=== PATIENT | female | born 1950 | race Caucasian/White ===

== ENCOUNTER 2017-05-05 16:59 | Inpatient (IN) | payer MEDICARE ==
[2017-05-05 18:13] LABS: BASOPHILS 0.2 % (0-2); EOSINOPHILS 0 % (0-7); HEMATOCRIT 38.4 % (36.0-48.0); HEMOGLOBIN 12.9 g/dL (12-16); IMMATURE GRANULOCYTES 0.2 % (0-5); LYMPHOCYTES 42.4 % (15-50); MCH 31.5 pg (26.0-34.0); MCHC 33.6 g/dL (31.0-37.0); MCV 93.9 fL (80.0-100.0); MEAN PLATELET VOLUME 10.4 fL (7.4-10.4); MONOCYTES 8.1 % (2-11); NEUTROPHILS 49.1 % (40-80); PLATELET COUNT 202 10x3/uL (130-400); RBC 4.09 10x6/uL (4.00-5.40); RDW 14.9 % (11.5-14.5); WBC 6.5 10x3/uL (4.8-10.8)
[2017-05-05 18:18] LABS: APPEARANCE CLEAR (CLEAR); COLOR STRAW (YELLOW); GLUCOSE NEGATIVE (NEGATIVE); KETONE NEGATIVE (NEGATIVE); NITRITE NEGATIVE (NEGATIVE); PROTEIN 1+ mg/dL (NEGATIVE); UROBILINOGEN NORMAL (NORMAL)
[2017-05-05 18:19] LABS: BILIRUBIN NEGATIVE (NEGATIVE)
[2017-05-05 18:21] LABS: BACTERIA FEW /hpf (NONE SEEN); WHITE CELLS - URINE 0-5 /hpf (0-5)
[2017-05-05 18:26] LABS: UDS - AMPHET NEGATIVE QUAL (NEGATIVE); UDS - BARB NEGATIVE QUAL (NEGATIVE); UDS - BENZO NEGATIVE QUAL (NEGATIVE); UDS - COCAINE NEGATIVE QUAL (NEGATIVE); UDS - OPIATE NEGATIVE QUAL (NEGATIVE); UDS - PCP NEGATIVE QUAL (NEGATIVE); UDS - THC NEGATIVE QUAL (NEGATIVE)
[2017-05-05 18:27] LABS: ALBUMIN 3.7 g/dL (3.4-5.0); ANION GAP 16.7 mmol/L (8-16); BILIRUBIN - TOTAL 0.3 mg/dL (0.2-1.3); CALCIUM 8.9 mg/dL (8.5-10.1); CARBON DIOXIDE 28.2 mmol/L (21.0-32.0); CREATININE - SERUM 0.9 mg/dL (0.6-1.3); POTASSIUM - SERUM 3.9 mmol/L (3.5-5.1); PROTEIN - SERUM 7.4 g/dL (6.4-8.2)
[2017-05-05 23:36] VITALS: BP 137/92; BMI 27.5
--- NOTE | 2017-05-06 02:41 | NUR ---
Patient arrived from E.D at 23:00, alert and oriented X 4, VSS, code status full code, consents signed, code word is Kailey, contracted for safety, patient had gun to her, head at home and was intoxicated when police and EMS arrived at her home, PRN Ativan 0.5 mg PO and Haldol2 mg PO given at 00:50 for anxiety, will continue ot monitor.
[2017-05-06 06:46] LABS: HEMOGLOBIN A1C 5.9 % (4.8-6.0)
[2017-05-06 07:08] LABS: CHOL - HDL RATIO 1.9 ratio (2.3-4.1); LDL-HDL RATIO 0.8 ratio (1.5-3.5); THYROID STIMULATING HORMONE 4.7 uIU/mL (0.36-3.74)
[2017-05-06 08:15] VITALS: BP 159/100
[2017-05-06 08:17] VITALS: BMI 27.5
--- NOTE | 2017-05-06 09:11 | NUR ---
PATIENT STATES DR. MARTIN AT [facility] IS HER PHYSICIAN WILL TRY TO CALL AGAIN LATER, CURRENTLY LINES ARE BUSY.
--- NOTE | 2017-05-06 11:14 | NUR ---
B) PATIENT IS AWAKE AND ALERT, SHE IS ISOLATIVE AND SHE IS QUIET, SHE DENIES S.I, SHE ALSO CONTRACTS FOR NO SELF HARM. SHE AMBULATES INDEPENDENTLY. I) PROVIDE PRESCRIBED MEDS. R) PATIENT IS LAYING ON THE COUCH AND SHE KEEPS LEAVING FROM THE TABLE AND GETTING BACK ON THE COUCH. SHE ALSO KEEPS GOING TO THE BATHROOM. P) CONTINUE POC.
[2017-05-06] MEDS ORDERED: COLACE100 MG PO (11:31)
[2017-05-06] MEDS ORDERED: VOLTAREN75 MG PO (11:33)
[2017-05-06] MEDS ORDERED: CARDIZEM CD180 MG PO (11:35)
[2017-05-06] MEDS ORDERED: FLOVENT DI50 MCG/DIS INH (11:36)
[2017-05-06] MEDS ORDERED: NASONEX NASAL S17 GM NS (11:38)
[2017-05-06] MEDS ORDERED: ZOLOFT100 MG PO (11:38)
[2017-05-06] MEDS ORDERED: ULTRAM50 MG PO (11:39)
[2017-05-06] MEDS ORDERED: TRAZODONE HCL150 MG PO (11:40)
[2017-05-06 19:40] VITALS: BP 176/98
--- NOTE | 2017-05-07 03:06 | NUR ---
B) Patient alert and oriented X 4, calm and cooperative, no S.I. I) Administered scheduled medications, contracted for safety, monitored for safety. R) Medications complliant, P) Continue plan of care.
[2017-05-07 05:13] LABS: RAPID PLASMA REAGIN Non Reactive (Non Reactive)
[2017-05-07 08:10] VITALS: BP 140/85
[2017-05-07 09:13] LABS: FOLATE (FOLIC ACID) - SERUM 2.6 ng/mL (>3.0)
--- NOTE | 2017-05-07 11:56 | PSY ---
PATIENT NAME:JESSICA MURRIETA MEDICAL RECORD: [id number] : 52 LOCATION:[facility] ADMISSION DATE: 05/05/17 ACCOUNT: [id number] PSYCHIATRIC EVALUATION DATE OF EVALUATION: 05/06/17 IDENTIFYING DATA: The patient is 66 years old and she is admitted to the hospital on a voluntary basis. CHIEF COMPLAINT: Depression. HISTORY OF PRESENT ILLNESS: The patient is a binge drinking alcoholic. She states that about every 3 weeks, she will go and buy a large container, half a gallon I think of [place] and then stay at home and drink it over several days. Apparently, on this occasion, though she decided that she was going to kill herself. She apparently had a gun and held it to her head. She was crying. She called her primary care. She called her employer, who called an ambulance and she was brought to the hospital. She now says she does not actually want to kill herself, but she does not really care if she lives or dies. PAST MEDICAL HISTORY: Significant for a hysterectomy and atrial fibrillation. PAST PSYCHIATRIC HISTORY: Significant for chronic depression and alcoholism. She has been through several residential and outpatient programs. ALLERGIES: PENICILLIN. CURRENT MEDICATIONS: Include trazodone, Ultram, Zoloft, Cardizem, Voltaren and Colace. FAMILY HISTORY: Unknown, the patient was adopted. SOCIAL HISTORY: The patient was adopted at . She knows nothing about her family of origin. She says that her family, who adopted her were stable and loving and healthy appropriate people. She did graduate from high school. She also went to college and is a retired middle school history teacher. She was for a while, but . She has 2 adult daughters and she has recently moved from [place] to [place] to be close to her daughter and some grandchildren. MENTAL STATUS EXAMINATION: The patient is awake, alert and oriented to person, place and somewhat to time and situation. Her mood is depressed. Her affect is constricted. Thought processes are circumstantial. Memory, concentration and abstraction abilities are mildly impaired. She denies any active intent to harm herself or others as well as overt psychotic symptoms. ASSETS: Supportive family members. LIABILITIES: Limited insight. DIAGNOSTIC IMPRESSION: AXIS I: Major depression, recurrent, moderate severity without psychotic features, alcohol abuse. AXIS II: Deferred. AXIS III: History of closed head injury and chronic headaches and cardiac arrhythmia. AXIS IV: Moderate stressors. AXIS V: Global assessment of functioning is 40. PLAN: At this time, the patient is admitted to the hospital for a comprehensive medical, psychological and social evaluation. She will be treated with both mood stabilizing and antidepressant medications. Her long-term prognosis is guarded. TRANSINT:[id number] Voice Confirmation ID: [id number] DOCUMENT ID: [id number] NOBLE GALLAGHER MD at 1156 CC: [id number] DICTATION DATE: 05/06/17 1745 PRESS OPERATOR PRINTING: 05/06/17 1833 ADM IN [facility] [address] [id number]
--- NOTE | 2017-05-07 12:04 | NUR ---
ORIENTED X 4.DENIES THOUGHTS OF HARMING SELF.IS CALM AND COOPERATIVE WITH STAFF AND PEERS.COMPLIANT WITH MEDS.AMBULATORY WITH STEADY GAIT.WILL CONTINUE WITH PLAN OF CARE,MONITOR FOR CHANGES AND SAFETY.
[2017-05-07 19:30] VITALS: BP 132/91
--- NOTE | 2017-05-07 20:20 | NUR ---
B) Patient is alert and oriented X 4, calm and cooperative with care and assessment, I) Administered scheduled medications, monitored for safety, contracted for safety, R) Medication compliant, pleasant and friendly, P) Continue plan of care.
[2017-05-08 08:19] VITALS: BP 124/75
--- NOTE | 2017-05-08 10:30 | NUR ---
B) PATIENT IS ALERT AND ORIENTED X 4. NO S.I. DENIES SELF HARM. I) ADMINISTERED PRESCRIBED MEDICATIONS, VSS, ASSESSMENT COMPLETED. R) MEDICATION COMPLIANT, RESTING QUIETLY ON SOFA IN DAYROOM P) CONTINUE PLAN OF CARE.
--- NOTE | 2017-05-08 11:35 | NUR ---
TYLENOL 650 MG PO GIVEN FOR HEADACHE AT LEVEL 8.
--- NOTE | 2017-05-08 19:50 | NUR ---
RECEIVED IN DINING AREA. SOCIALIZING WITH STAFF AND PEERS AT TIMES/ CALM AND COOPERATIVE WITH CARE AND ASSESSMENTS. DENIES THOUGHTS OF SELF HARM. ENCOURAGE TO EXPRESS NEEDS. CONTINUES TO WALK ABOUT SOCIALIZING AT TIMES. CONTINUE PLAN OF CARE
[2017-05-08 20:00] VITALS: BP 103/53
[2017-05-09 07:10] LABS: VITAMIN D 25 HYDROXY 14.7 ng/mL (30.0-100.0)
[2017-05-09 08:00] VITALS: BP 110/87
--- NOTE | 2017-05-09 08:30 | NUR ---
B) AWAKE AND ORIENTED X 4. DENIES ANY S.I. AND STATES NO-HARM CONTRACT. I) ADMINISTERED PRESCRIBED MEDICATIONS, VSS, ASSESSMENT COMPLETED. R) CXOMPLIANT WITH MEDICATIONS AND UNIT MILIEU. P) CONTINUE PLAN OF CARE.
--- NOTE | 2017-05-09 13:33 | PN ---
PATIENT:JESSICA MURRIETA MEDICAL RECORD: [id number] LOCATION:[facility] ADMISSION DATE: 05/05/17 PROGRESS NOTE DATE OF SERVICE: 05/07/2017 SUBJECTIVE: The patient's case was discussed with staff. She has no new complaint. OBJECTIVE: The patient is in good behavioral control. She denies that she would seek to harm herself or others. She has limited insight about her condition. ASSESSMENT: No change in diagnoses. PLAN: The patient has an elevated TSH. I am going to start her on a low dose of Synthroid. She will be monitored for clinical changes. TRANSINT:[id number] Voice Confirmation ID: [id number] DOCUMENT ID: [id number] NOBLE GALLAGHER MD at 1333 CC: [id number] DICTATION DATE: 05/07/17 1207 ENVIRONMENTAL PROGRAMS SPECIALIST: 05/07/17 1214 ADM IN [place] [address] [place] [address]
[2017-05-09 20:07] VITALS: BP 118/42
--- NOTE | 2017-05-09 22:42 | NUR ---
RECEIVED IN BEDROOM. LAYING IN BED WITH EYES OPEN. CALM AND COOPERATIVE WITH CARE AND ASSESSMENT. DENIES THOUGHTS OF SELF HARM. ENCOURAGE TO EXPRESS NEEDS. RESTING IN BED WTIH EYES CLOSED AT THIS TIME. CONTINUE PLAN OF CARE.
[2017-05-10 08:00] VITALS: BP 140/84
--- NOTE | 2017-05-10 08:45 | NUR ---
B) AWAKE AND ORIENTED X 4. RESTING ON SOFA AFTER BREAKFAST AND WATCHING TV. CALM AND COOPERATIVE, CONTRACTS FOR NO SELF-HARM. I) ADMINISTERED PRESCRIBED MEDICATIONS, VSS, AND ASSESSMENT COMPLETED. R) COMPLIANT WITH MEDICATIONS AND UNIT MILIEU. P) MONITOR FOR SAFETY AND CONTINUE PLAN OF CARE.
--- NOTE | 2017-05-10 14:30 | PN ---
PATIENT:JESSICA MURRIETA MEDICAL RECORD: [id number] LOCATION:[facility] ADMISSION DATE: 05/05/17 PROGRESS NOTE DATE OF SERVICE: 05/09/2017 SUBJECTIVE: The patient's case was discussed with staff. She has no new complaint. OBJECTIVE: The patient denies that she would seek to harm herself or others. Her eye contact is fair. ASSESSMENT: No change in diagnoses. PLAN: Current medicines have been reviewed. I am going to reduce and subsequently taper her Klonopin dose. TRANSINT:[id number] Voice Confirmation ID: [id number] DOCUMENT ID: [id number] NOBLE GALLAGHER MD at 1430 CC: [id number] DICTATION DATE: 05/09/17 1339 CREDIT COLLECTIONS SPECIALIST: 05/09/17 1406 ADM IN [place] [id number] [place] [address]
[2017-05-10] MEDS ORDERED: DEPAKOTE500 MG PO (14:48)
[2017-05-10] MEDS ORDERED: SYNTHROID25 MCG PO (14:48)
[2017-05-10] MEDS ORDERED: EFFEXOR37.5 MG PO (14:48)
[2017-05-10 20:21] VITALS: BP 143/83
--- NOTE | 2017-05-11 00:09 | NUR ---
RECEIVED IN [place] AT [facility]. SOCIALIZING WITH STAFF AT TIMES. ALERT AND ORIENTED X4. CALM AND COOPERATIVE [facility] CARE AND ASSESSMENT. NO THOUGHTS OF SELF HARM. ENCOURAGE TO EXPRESS NEEDS. RESTING IN BED WITH EYES CLOSED AT THIS TIME. CONTINUE PLAN OF CARE.
[2017-05-11 09:34] VITALS: BP 150/88
--- NOTE | 2017-05-11 12:30 | NUR ---
CALM AND COOPERATIVE WITH CARE. CONTRACTS FOR NO SELF-HARM. PRESCRIBED MEDICATIONS GIVEN. DENIES ANY NEEDS. WILL CONTINUE TO MONITOR. SCHEDULED TO DISCHARGE TODAY. ALL DISCHARGE PAPERWORK RECEIVED AND REVIEWED. FAXED TO DR. COMBS'S OFFICE AND [facility].
--- NOTE | 2017-05-11 13:00 | PN ---
PATIENT:JESSICA MURRIETA MEDICAL RECORD: [id number] LOCATION:[facility] ADMISSION DATE: 05/05/17 PROGRESS NOTE DATE OF SERVICE: 05/10/2017 SUBJECTIVE: The patient's case was discussed with staff. She has no new complaint. OBJECTIVE: The patient denies intent to harm herself or others. She generally tolerates her medicines well. ASSESSMENT: No change in diagnoses. PLAN: The patient is in good behavioral control and denies any thoughts of harming herself or others. I am going to let her discharge home tomorrow at her request, assuming there is the same improvement in her underlying condition. She is willing to go to outpatient therapy and I think that is helpful. She is also willing to go to Alcoholics Anonymous, which is also helping. I think her long-term prognosis is good if she avoids drinking. It is poor, if she does not. TRANSINT:[id number] Voice Confirmation ID: [id number] DOCUMENT ID: [id number] NOBLE GALLAGHER MD at 1300 CC: [id number] DICTATION DATE: 05/10/17 1450 HANDCREW FOREMAN: 05/10/17 1602 ADM IN [facility] [address] [place] [address]
--- NOTE | 2017-05-12 13:31 | PN ---
PATIENT:JESSICA MURRIETA MEDICAL RECORD: [id number] LOCATION:[facility] ADMISSION DATE: 05/05/17 PROGRESS NOTE DATE OF SERVICE: 05/11/2017 SUBJECTIVE: The patient's case was discussed with staff. She has no new complaint. OBJECTIVE: The patient has an euthymic mood and an appropriate affect. She denies that she would seek to harm herself or others. She is showing no evidence of alcohol withdrawal. ASSESSMENT: No change in diagnoses. PLAN: The patient is going to be discharged today. Her daughter has her firearm. The patient has agreed to go to Alcoholics Anonymous and she is going to continue with her weekly sessions with her outpatient therapist. In addition to this, the outpatient therapist has agreed to some family therapy sessions, which I think will be helpful. In addition to this, the patient is going to begin attending the [facility] day treatment counseling program. All of this is going to be very helpful to her in my opinion. As mentioned before, the primary issue upon which all of this is going to hinge is her abstinence from alcohol. I hope that she does not drink and her prognosis is entirely contingent upon that. There is no evidence of acute dangerousness. She will be released today. TRANSINT:[id number] Voice Confirmation ID: [id number] DOCUMENT ID: [id number] NOBLE GALLAGHER MD at 1331 CC: [id number] DICTATION DATE: 05/11/17 1312 INDUCTION BRAZER: 05/11/17 1349 DIS IN 05/11/17 [address] [place] [address]
--- NOTE | 2017-05-20 10:00 | DS ---
PATIENT:JESSICA MURRIETA :52 MEDICAL RECORD: [id number] DISCHARGE SUMMARY ADMISSION DATE: 05/05/17 DISCHARGE DATE: 05/11/17 IDENTIFYING DATA: The patient is 66 years old, and she was admitted to the hospital on a voluntary basis secondary to depression. The patient apparently is a binge drinker, and she will engage in episodes about every 3 weeks. When she does go on a binge drinking episode, she will buy a half a gallon or gallon of bourbon and then stay at home and drink until it is finished and then she will be sick for a few days and then will seed cone picker with her life where she left off. What is different at this time is that toward the end of the binge episode, she was feeling depressed, held a gun to her head and was crying and then called her employer who of course called an ambulance. The patient after she became sober said that she has depressive issues and clearly admits to having functional issues with depression, but denies that she would want to hurt herself and indicated that that was just something she would do while under the influence of alcohol. HOSPITAL COURSE: The patient was admitted to the hospital and fully evaluated from both a medical, psychological, and social standpoint. She did not show evidence of alcohol withdrawal. She was treated with an antidepressant medication, but showed improvement so quickly that I think it was just a matter of her not drinking more than the fact that the antidepressant had been on board for a few days. The patient has a number of triggers that lead to drinking, these were extensively discussed. DISCHARGE DIAGNOSES: AXIS I: Major depression, recurrent, moderate severity without psychotic features. Alcohol abuse. AXIS II: Deferred. AXIS III: History of closed head injury, chronic headaches, cardiac arrhythmia. AXIS IV: Moderate stressors. AXIS V: Global Assessment of Functioning is 45. PLAN: At the time of discharge, the patient was not acutely dangerous. She had a very reasonable outpatient treatment plan that she agreed to follow. First of all, she was going to go to Alcohol Anonymous and get a sponsor and make a very sincere effort not to drink. In addition to this, she is going to go to outpatient counseling at the [facility] program, which involves group counseling and physician visits twice a week. She also is going to become involved in some other hobbies and activities to keep her busy. She will have outpatient psychiatric followup. In short, I think her prognosis is good assuming she does not drink. If she does drink, then I have serious concerns about her safety. I do not have serious concerns about the safety of others either directly or indirectly. She has not threatened others nor did she typically drive when she has been drinking, she just isolates at home, so she would not be a public safety risk. TRANSINT:[id number] Voice Confirmation ID: [id number] DOCUMENT ID: [id number] DISCHARGE SUMMARY REPORT [id number] JESSICA MURRIETA PETER MD at 1000 CC: [id number] DICTATION DATE: 05/19/17 1213 MEDICAL RECORDS MANAGER: 05/19/17 1417 DIS IN 05/11/[id number] [place] [address]
== END 2017-05-11 12:30 | disposition short-term general hospital (02) | DRG 885 ==
LOC: D.ER 16:59 → D.PSYCH 22:00
PROVIDERS: Emergency Medicine; ADMIT Psychiatry & Neurology Psychiatry
DX: F33.1 Major depressive disorder, recurrent, moderate (principal); N39.0 Urinary tract infection, site not specified; F10.10 Alcohol abuse, uncomplicated; K02.9 Dental caries, unspecified; I48.91 Unspecified atrial fibrillation; M54.5 Low back pain; K59.09 Other constipation; G47.00 Insomnia, unspecified; W19.XXXA Unspecified fall, initial encounter

== ENCOUNTER 2017-12-04 20:26 | Inpatient (IN) | payer MEDICARE ==
[~2017-12-04 20:26] MED LIST: CARDIZEM CD180 MG PO; COLACE100 MG PO; DEPAKOTE500 MG PO; EFFEXOR37.5 MG PO; FLOVENT DI50 MCG/DIS INH; NASONEX NASAL S17 GM NS; SYNTHROID25 MCG PO; TRAZODONE HCL150 MG PO; ULTRAM50 MG PO; VOLTAREN75 MG PO; ZOLOFT100 MG PO
[2017-12-04 21:10] LABS: BASOPHILS 0.1 % (0-2); EOSINOPHILS 0 % (0-7); HEMATOCRIT 41.7 % (36.0-48.0); IMMATURE GRANULOCYTES 0.3 % (0-5); LYMPHOCYTES 16.5 % (15-50); MCH 31.7 pg (26.0-34.0); MCHC 33.6 g/dL (31.0-37.0); MCV 94.3 fL (80.0-100.0); MEAN PLATELET VOLUME 10.4 fL (7.4-10.4); MONOCYTES 5.1 % (2-11); PLATELET COUNT 182 10x3/uL (130-400); RBC 4.42 10x6/uL (4.00-5.40); RDW 14.8 % (11.5-14.5); WBC 10.6 10x3/uL (4.8-10.8)
[2017-12-04 21:15] LABS: APPEARANCE CLEAR (CLEAR); BILIRUBIN NEGATIVE (NEGATIVE); COLOR STRAW (YELLOW); GLUCOSE NEGATIVE (NEGATIVE); KETONE SMALL mg/dL (NEGATIVE); NITRITE NEGATIVE (NEGATIVE); PROTEIN NEGATIVE (NEGATIVE); UROBILINOGEN NORMAL (NORMAL)
[2017-12-04 21:25] LABS: UDS - AMPHET NEGATIVE QUAL (NEGATIVE); UDS - BARB NEGATIVE QUAL (NEGATIVE); UDS - BENZO NEGATIVE QUAL (NEGATIVE); UDS - COCAINE NEGATIVE QUAL (NEGATIVE); UDS - OPIATE NEGATIVE QUAL (NEGATIVE); UDS - PCP NEGATIVE QUAL (NEGATIVE); UDS - THC NEGATIVE QUAL (NEGATIVE)
[2017-12-04 21:28] LABS: ALBUMIN 3.7 g/dL (3.4-5.0); ANION GAP 23.4 mmol/L (8-16); BILIRUBIN - TOTAL 0.4 mg/dL (0.2-1.3); CALCIUM 8.6 mg/dL (8.5-10.1); CARBON DIOXIDE 16.6 mmol/L (21.0-32.0); CREATININE - SERUM 0.9 mg/dL (0.6-1.3); MAGNESIUM - SERUM 1.7 mg/dL (1.8-2.4); PROTEIN - SERUM 7.6 g/dL (6.4-8.2)
== END 2017-12-05 05:02 | disposition home or self-care (01) | DRG 881 ==
LOC: D.ER 20:26 → D.EDHOLD 12-05 03:36
PROVIDERS: Family Medicine
DX: F32.9 Major depressive disorder, single episode, unspecified (principal); R45.851 Suicidal ideations; Y90.8 Blood alcohol level of 240 mg/100 ml or more

== ENCOUNTER 2020-12-12 07:23 | Day surgery (SDC) | payer MEDICARE ==
[~2020-12-12] VITALS: Ht 172.7 cm; Wt 109.3 kg
[2020-12-12 08:22] LABS: ANION GAP 14.6 mmol/L (8-16); CALCIUM 9.8 mg/dL (8.5-10.1); CARBON DIOXIDE 24.4 mmol/L (21.0-32.0); CREATININE - SERUM 1.1 mg/dL (0.6-1.3)
[2020-12-12 08:40] LABS: APTT 31.5 SECONDS (22.8-39.4); INR 1.16 (0.85-1.17); PROTIME 13.7 SECONDS (11.6-15.0)
[2020-12-12] MEDS ORDERED: ABILIFY10 MG PO (09:32)
[2020-12-12] MEDS ORDERED: LIPITOR20 MG PO (09:33)
[2020-12-12] MEDS ORDERED: ASCORBIC ACID500 MG PO (09:33)
[2020-12-12] MEDS ORDERED: ELIQUIS5 MG PO (09:34)
[2020-12-12 09:36] LABS: BASOPHILS 0.1 % (0-2); EOSINOPHILS 0 % (0-7); HEMATOCRIT 33.2 % (36.0-48.0); HEMOGLOBIN 9.8 g/dL (12-16); IMMATURE GRANULOCYTES 0.3 % (0-5); LYMPHOCYTE ABS# 1.77 10x3/uL (1.18-3.74); MCH 23.7 pg (26.0-34.0); MCHC 29.5 g/dL (31.0-37.0); MCV 80.4 fL (80.0-100.0); MONOCYTES 9.8 % (2-11); NEUTROPHIL ABS# 5.13 10x3/uL (1.56-6.13); NEUTROPHILS 66.8 % (40-80); PLATELET COUNT 58 10x3/uL (130-400); RBC 4.13 10x6/uL (4.00-5.40); RDW 18.1 % (11.5-14.5); WBC 7.7 10x3/uL (4.8-10.8)
[2020-12-12] MEDS ORDERED: ZOLOFT100 MG PO (09:36)
[2020-12-12] MEDS ORDERED: TIAZAC/CARDIZE180 MG PO (09:37)
[2020-12-12] MEDS ORDERED: MUCINEX600 MG PO (09:38)
[2020-12-12] MEDS ORDERED: NOVOLOG100 UNIT/1 SC (09:39)
[2020-12-12] MEDS ORDERED: LEVEMIR IN100 UNITS/ SC (09:39)
[2020-12-12] MEDS ORDERED: LINZESS145 MCG PO (09:39)
[2020-12-12] MEDS ORDERED: CLARITIN 10 MG10 MG PO (09:39)
[2020-12-12] MEDS ORDERED: KLOR-CON M2020 MEQ PO (09:40)
[2020-12-12] MEDS ORDERED: PROTONIX20 MG PO (09:41)
[2020-12-12] MEDS ORDERED: INDERAL 40 MG T40 MG PO (09:41)
[2020-12-12] MEDS ORDERED: DETROL LA4 MG PO (09:42)
[2020-12-12 09:50] VITALS: BP 123/66; Ht 172.7 cm; Wt 109.3 kg
--- NOTE | 2020-12-12 10:54 | HP ---
PATIENT: JESSICA OLIVEIRA MEDICAL RECORD: [id number] ACCOUNT: [id number] LOCATION:[facility] : 52 ADMISSION DATE: 12/12/20 PCP: JAYDA BUCIO APRN HISTORY AND PHYSICAL EXAMINATION PREOPERATIVE HISTORY AND PHYSICAL HISTORY OF PRESENT ILLNESS: Ms. Oliveira is a 70-year-old female. She was recently admitted in [place] with an infection in her neck, seems like most likely that was a dental infection or maybe a right submandibular gland infection. 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 She was not able to tolerate a biopsy done in the office. She has been admitted for direct laryngoscopy, biopsy of the pharyngeal mass. PAST MEDICAL HISTORY: Includes diabetes, AFib, CVA. PAST SURGICAL HISTORY: Includes , hysterectomy, hip replacement. ALLERGIES: TO PENICILLIN. PHYSICAL EXAMINATION: GENERAL: She is in a wheelchair. She is overweight, has a difficult mobility FACE: Normal and symmetric. EYES: Sclerae and conjunctivae are normal. EARS: Canals and TMs normal. NOSE: No masses, polyps, or drainage. NECK: Right neck; no masses, no adenopathy, no skin changes. ORAL CAVITY AND OROPHARYNX: She had some severe dental decay, but no active visible infection now. No trismus. She has a lesion involving the right palate and tonsil, exophytic. CHEST: Clear. IMPRESSION: Right pharynx lesion. PLAN: Biopsy and direct laryngoscopy for diagnosis, so she can be treated. TRANSINT:[id number] Voice Confirmation ID: [id number] DOCUMENT ID: [id number] FELY LIRA MD at 1054 CC: [id number] DICTATION DATE: 12/11/20 0854 ORDER RUNNER: 12/11/20 1010 [facility] [address] [place] [address]
[2020-12-12 14:19] LABS: ANISOCYTOSIS OCC; PLATELET ESTIMATE DECREASED
--- NOTE | 2020-12-12 14:50 | NUR ---
DISCHARGE INSTRUCTIONS REVIEWED WITH PT'S DAUGHTER MYESHA. COPY PROVIDED ALONG WITH ORIGINAL RX FOR LORTAB ELIXIR, TO BE GIVEN TO THE [facility]. MYESHA VOICED UNDERSTANDING. IV THEN DC'D WITH CATH TIP INTACT. PT DRESSED BY STAFF AND [place] FOOD AND BEVERAGE ASSOCIATE.
--- NOTE | 2020-12-12 15:22 | NUR ---
PT TRANSFERRED TO W/C WITH 4 PERSON ASSIST AND DISCHARGED VIA OWN PERSONAL W/C, TO [place] WITH [place] PERSON[place]EL DRIV[place]. ALL BELONGINGS WITH DAUGHTER MYESHA AND DC PACKET WITH [place] TRACK LAYING EQUIPMENT OPERATOR.
--- NOTE | 2020-12-15 09:28 | OP ---
PATIENT NAME: JESSICA MURRIETA MEDICAL RECORD: [id number] :52 [facility] DATE: SURGEON: FELY LIRA MD DATE OF OPERATION: 12/12/2020 PREOPERATIVE DIAGNOSIS: Pharynx lesion throat pain. POSTOPERATIVE DIAGNOSIS: Pharynx lesion throat pain. PROCEDURE: Left direct laryngoscopy and biopsy. SURGEON: Fely Lira MD ANESTHESIA: General orotracheal. BLOOD LOSS: Less than 5 cc. SPECIMENS: Multiple biopsies of right anterior palate. COMPLICATIONS: None. DISPOSITION: Recovery, stable. DESCRIPTION OF PROCEDURE: She was brought to the operating room and placed in supine position, sedated and intubated by anesthesia. Eye was taped, head was turned 90 degrees. Head drape was applied and she was positioned for endoscopy. Using a headlight oral cavity and oropharynx were examined, extremely poor dentition. Loose lower anterior teeth and lot of anterior upper teeth decayed to below the gumline, only lesion identified was right lower palate. Floor of mouth and tongue normal to palpation. Base of tongue was normal to palpation. Pharynx and tonsils are normal. The Kleinsasser J. laryngoscope was inserted using a plastic upper tooth guard to protect the gums. Posterior pharyngeal wall, lateral pharyngeal nicolas, base of tongue, vallecula, epiglottis, piriform and larynx itself were all normal postcricoid area. No lesions identified. The Waylon-Filiberto mouth gag was carefully inserted and elevated on a towel on her chest. The area was examined. She had this lesion, 3 cm exophytic already bleeding and friable, right superior tonsil lateral soft palate area. Multiple biopsies were taken with a 4 mm cup forceps. She is on anticoagulants. It was not bleeding too much. Suction cautery was used to make sure it was not bleeding very much, quite a bit of biopsies plenty for diagnosis, deep and superficial that was sent for path. The area was irrigated clean. No significant bleeding. A Waylon-Filiberto mouth gag was let down. She was awakened, extubated, and transported to recovery in good condition. No complications. TRANSINT:[id number] Voice Confirmation ID: [id number] DOCUMENT ID: [id number] OPERATIVE REPORT [id number] KEVINJESSICA ANG FELY LIRA MD at 0928 CC: [id number] DICTATION DATE: 12/12/20 1302 QUALITY IMPROVEMENT CONSULTANT: 12/12/20 2301 [facility] 12/12/20 [facility] [address] [id number]
== END 2020-12-12 15:22 ==
LOC: D.OPS 07:23
PROVIDERS: Anesthesiology; ATTEND Otolaryngology
DX: J39.2 Other diseases of pharynx (principal); R07.0 Pain in throat; E11.9 Type 2 diabetes mellitus without complications; I48.91 Unspecified atrial fibrillation; Z86.73 Personal history of transient ischemic attack (TIA), and cerebral infarction without residual deficits